=== PATIENT | male | born 1945 | race Caucasian/White ===

== ENCOUNTER → 2016-12-09 08:16 | Day surgery (SDC) | payer MEDICARE, BC ==
[~2016-12-09 08:16] MED LIST: Acetaminophen TAB* 325 MG PO PRN; Buffered Lidocaine 1% SYRIN* 3 ML/SYR SYRINGE INTRADERM ONE; Cyclopentolate 1% OPTH.SOL* 2 ML BTL ONE; Flurbiprofen 0.03% OPTH.SOL* 2.5 ML BTL ONE; Lidocaine 1% MPF* 2 ML VIAL ONE; Lidocaine 2% EPI 1:200000 MPF* 20 ML VIAL ONE; Midazolam* 1 MG/ML 2 ML VIAL (2 MG) ONE; Neomycin/Polymy/Dex OPTH.SUSP* MAXITROL 0.1% 5 ML ONE; Phenylephrine 2.5% OPTH.SOL* 2 ML BTL ONE; Povidone Iodine 5% OPTH* 30 ML BTL ONE; Proparacaine 0.5% OPHTH.SOL* 15 ML BTL ONE; acetaZOLAMIDE TAB* 250 MG ONE; fentaNYL* 50 MCG/ML 2 ML VIAL (100 MCG VIAL) ONE
[2016-12-09 10:57] VITALS: BP 151/71
--- NOTE | 2016-12-09 11:33 | OP ---
DATE OF OPERATION: 12/09/2016. DATE OF : 1945. SURGEON: Rodolfo Knox M.D. PREOPERATIVE DIAGNOSIS: Cataract right eye. POSTOPERATIVE DIAGNOSIS: Cataract right eye. OPERATIVE PROCEDURE: Phacoemulsification right eye with IOL. PROCEDURE: The patient was brought to the operating room after being given 1/2% Alcaine with epinep hrine drops in the preoperative area. The eye was prepped and draped in the usual sterile fashion. Sterile drape and eyelid speculum were placed. Again, topical 1/2% Alcaine with epinephrine was gi cortney. A paracentesis incision was made at the 9 o'clock position with the No.75 blade. Clear cornea incision 2.2 x 2.2-mm was created at the 12 o'clock position starting at the anterior limbus using the 2.2-mm keratome. The anterior chamber was irrigated with 0.4 mL of 1% non-preservative intracam eral lidocaine and filled with DisCoVisc. A capsulorrhexis was completed using the cystotome and th e Utrata forceps. Hydrodissection was performed with balanced salt solution. The lens nucleus was r emoved with the Phacoemulsification handpiece without incident. Cortex was removed with the irrigat ion-aspiration handpiece. The capsular bag was re-inflated using DisCoVisc and an SN60WF 18.5 Impla nt was inserted with the shooter. The irrigation-aspiration handpiece was used to remove all residu al DisCoVisc. The eye was refilled with balanced salt solution and the wound checked and found to b e watertight. Topical Maxitrol drops were given. [id number]/[facility] #: [id number]
== END | disposition home or self-care (01) ==
LOC: OREAST 08:16
PROVIDERS: ATTEND Specialist
DX: H25.811 Combined forms of age-related cataract, right eye (principal); E11.3393 Type 2 diabetes mellitus with moderate nonproliferative diabetic retinopathy without macular edema, bilateral; Z79.4 Long term (current) use of insulin; H35.81 Retinal edema; N18.3 Chronic kidney disease, stage 3 (moderate); E78.2 Mixed hyperlipidemia; I10 Essential (primary) hypertension
CPT/HCPCS: J2250; J3010; V2632

== ENCOUNTER → 2016-12-16 08:00 | Day surgery (SDC) | payer MEDICARE, BC ==
[~2016-12-16 08:00] MED LIST changes: -fentaNYL* 50 MCG/ML 2 ML VIAL (100 MCG VIAL) ONE
[2016-12-16 11:21] VITALS: BP 127/65
--- NOTE | 2016-12-17 07:49 | OP ---
DATE OF OPERATION: 12/16/16 - [facility] DATE OF : [birth year] SURGEON: Rodolfo Knox MD PREOPERATIVE DIAGNOSIS: Cataract, left eye. POSTOPERATIVE DIAGNOSIS: Cataract, left eye. OPERATIVE PROCEDURE: Phacoemulsification, left eye with IOL. DESCRIPTION OF PROCEDURE: The patient was brought to the operating room after being given 1/2% Alcaine with epinephrine drops in the preoperative area. The eye was prepped and draped in the usual sterile fashion. Sterile drape and eyelid speculum were placed. Again, topical 1/2% Alcaine with epinephrine was given. A paracentesis incision was made at the 3 o'clock position with the No.75 blade. Clear cornea incision 2.2 x 2.2-mm was created at the 6 o'clock position starting at the anterior limbus using the 2.2-mm keratome. The anterior chamber was irrigated with 0.4 mL of 1% non-preservative intracameral lidocaine and filled with DisCoVisc. A capsulorrhexis was completed using the cystotome and the Utrata forceps. Hydrodissection was performed with balanced salt solution. The lens nucleus was removed with the Phacoemulsification handpiece without incident. Cortex was removed with the irrigation-aspiration handpiece. The capsular bag was re-inflated using DisCoVisc and an [id number] 18 implant was inserted with the shooter. The irrigation-aspiration handpiece was used to remove all residual DisCoVisc. The eye was refilled with balanced salt solution and the wound checked and found to be watertight. Topical Maxitrol drops were given. [id number]/[facility] #: [id number] [facility]
== END | disposition home or self-care (01) ==
LOC: OREAST 08:00
PROVIDERS: ATTEND Specialist
DX: H25.812 Combined forms of age-related cataract, left eye (principal); E11.3393 Type 2 diabetes mellitus with moderate nonproliferative diabetic retinopathy without macular edema, bilateral; I10 Essential (primary) hypertension; N18.3 Chronic kidney disease, stage 3 (moderate); Z79.4 Long term (current) use of insulin; E78.2 Mixed hyperlipidemia
CPT/HCPCS: J2250; V2632

== ENCOUNTER 2019-05-15 09:18 | Emergency (ER) | payer MEDICARE, BC ==
--- OUTSIDE RECORDS SUMMARY | 2019-05-15 09:37 | XMS REPORT | Continuity of Care Document ---
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 Medicine Problems Description No Information Available Social History Type Date Description Comments Sex Unknown ETOH Use Occasionally consumes alcohol 2 per week Tobacco Use Start: Unknown Patient has never smoked Smoking Status Reviewed: 05/03/19 Patient has never smoked Exercise Type/Frequency Does not exercise Allergies, Adverse Reactions, Alerts Active Allergies Reaction Severity Comments Date Augmentin GI Upset 04/28/2019 Azithromycin GI Upset 05/03/2019 Medications Active Medications SIG Qnty Indications Ordering Provider Date Atorvastatin Calcium 1 by mouth every 90tabs Moni Vann MD 04/28/2019 day 40mg Tablets Amlodipine Besylate 1 by mouth every 30tabs Moni Vann MD 04/28/2019 day 10mg Tablets Metoprolol Succinate 1 by mouth every Unknown ER day 25mg Tablets ER 24HR Lantus 27 units subq Unknown 100Unit/ML daily Solution Novolog Flexpen SSC coverage Unknown 100Unit/ML Solution Pen-Inject Omeprazole 1 by mouth every Unknown 20mg day Capsules DR Quinapril HCL 1 tab by mouth Unknown 10mg daily Tablets Vitamin D3 1 tab daily by Unknown mouth Immunizations Description No Information Available Vital Signs Date Vital Result Comment 05/03/2019 2:49pm Height 68 inches 5'8" Weight 175.00 lb Heart Rate 66 /min BP Systolic Sitting 138 mmHg BP Diastolic Sitting 70 mmHg Respiratory Rate 16 /min Body Temperature 98.8 F BMI (Body Mass Index) 26.6 kg/m2 Results Description No Information Available Procedures Date Code Description Status 03/08/2015 60251741 Mammogram Completed Medical Devices Description No Information Available Encounters Description No Information Available Assessments Description No Information Available Plan of Treatment No Information Available Functional Status Description No Information Available Mental Status Description No Information Available Referrals Description No Information Available
--- NOTE | 2019-05-15 09:55 | ED ---
Abdominal Pain/Male - HPI Summary HPI Summary: 73 year old M presenting to [facility] accompanied by complains of severe, constant diffuse abdominal pain and abdominal distension since 03:00 today. Patient states that he is burping. Patient reports diarrhea x3 this morning. Patient denies nausea, dsyuria, vomiting. The patient rates the pain 7/10 in severity. Symptoms aggravated by nothing. Symptoms alleviated by nothing. Patient states he treated his symptoms with Tums per assessment consultant. Patient states he had a similar episode of symptoms on 04/20/19. Patient states he had a CT Abdomen/Pelvis done on 04/24/19 which showed cholelithiasis. Patient states that at his follow up appointment with [facility], patient was told he did not have cholelithiasis. Patient states that his pain improved one week after his follow up appointment until 03:00 today. Patient notes that his symptoms coincide with long periods of time spent driving. - History of Current Complaint Chief Complaint: EDAbdPain Stated Complaint: ABD PAIN PER PT Time Seen by Provider: 05/15/19 09:28 Hx Obtained From: Patient Onset/Duration: Lasting Weeks - 04/20/19, Worse Since - 05/15/19 at 0300 Timing: Constant Severity Currently: Moderate Pain Intensity: 7 Pain Scale Used: 0-10 Numeric Location: Diffuse Radiates: No Aggravating Factor(s): Nothing Alleviating Factor(s): Nothing Associated Signs And Symptoms: Positive: Negative - dysuria, Diarrhea, Other - patient states he is burping. Negative: Nausea, Vomiting - Allergies/Home Medications Allergies/Adverse Reactions: Allergies Allergy/AdvReac Type Severity Reaction Status Date / Time amoxicillin [From Augmentin] Allergy Diarrhea Verified 05/15/19 09:26 azithromycin Allergy Unknown Verified 05/15/19 09:45 Reaction Details clavulanic acid Allergy Diarrhea Verified 05/15/19 09:26 [From Augmentin] Home Medications: Home Medications Metoprolol Succinate 1 tab PO DAILY 05/15/19 [History Confirmed 05/15/19] Vitamin D TAB* 1 tab PO DAILY 05/15/19 [History Confirmed 05/15/19] PMH/Surg Hx/FS Hx/Imm Hx Endocrine/Hematology History: Reports: Hx Diabetes - ON INSULIN Cardiovascular History: Reports: Hx Hypertension - PT STATES CONTROLLED WITH MEDS GI History: Reports: Hx Gastroesophageal Reflux Disease - PT STATES CONTROLLED WITH MEDS Sensory History: Reports: Hx Cataracts - BILAT, Hx Contacts or Glasses Denies: Hx Hearing Aid Opthamlomology History: Reports: Hx Cataracts - BILAT, Hx Contacts or Glasses - Cancer History Hx Chemotherapy: No Hx Radiation Therapy: No - Surgical History Surgery Procedure, Year, and Place: TONSILLECTOMY Hx Anesthesia Reactions: No - Immunization History Immunizations Up to Date: Yes Infectious Disease History: No Infectious Disease History: Denies: Traveled Outside the [place] in Last 30 Days - Family History Known Family History: Positive: Other - NEG: Breast CA - Social History Alcohol Use: Weekly Alcohol Amount: 2 BEERS WEEKLY Hx Substance Use: No Substance Use Type: Reports: None Hx Tobacco Use: No Smoking Status (MU): Never Smoked Tobacco Review of Systems Positive: Abdominal Pain, Diarrhea, Other - abdominal distension, patient states he is burping. Negative: Vomiting, Nausea Negative: dysuria All Other Systems Reviewed And Are Negative: Yes Physical Exam - Summary Physical Exam Summary: Appearance: The patient is well-nourished in no acute distress and in no acute pain. Skin: The skin is warm and dry and skin color reflects adequate perfusion. HEENT: The head is normocephalic and atraumatic. The pupils are equal and reactive. The conjunctivae are clear and without drainage. Nares are patent and without drainage. Mouth reveals moist mucous membranes and the throat is without erythema and exudate. The external ears are intact. The ear canals are patent and without drainage. The tympanic membranes are intact. Neck: The neck is supple with full range of motion and non-tender. There are no carotid bruits. There is no neck vein distension. Respiratory: Chest is non-tender. Lungs are clear to auscultation and breath sounds are symmetrical and equal. Cardiovascular: Heart is regular rate and rhythm. There is no murmur or rub auscultated. There is no peripheral edema and pulses are symmetrical and equal. Abdomen: The abdomen is diffusely tender and tympanitic. There are normal bowel sounds heard in all four quadrants and there is no organomegaly palpated. Musculoskeletal: There is no back tenderness noted. Extremities are non-tender with full range of motion. There is good capillary refill. There is no peripheral edema or calf tenderness elicited. Neurological: Patient is alert and oriented to person, place and time. The patient has symmetrical motor strength in all four extremities. Cranial nerves are grossly intact. Deep tendon reflexes are symmetrical and equal in all four extremities. Triage Information Reviewed: Yes Vital Signs On Initial Exam: Initial Vitals Temp Pulse Resp BP Pulse Ox 98.9 F 86 16 183/92 97 05/15/19 09:19 05/15/19 09:19 05/15/19 09:19 05/15/19 09:19 05/15/19 09:19 Vital Signs Reviewed: Yes Diagnostics - Vital Signs Vital Signs Temp Pulse Resp BP Pulse Ox 05/15/19 09:41 76 140/115 98 05/15/19 09:37 76 96 05/15/19 09:19 98.9 F 86 16 183/92 97 - Laboratory Result Diagrams: 05/15/19 10:01 05/15/19 10:01 Lab Statement: Any lab studies that have been ordered have been reviewed, and results considered in the medical decision making process. - CT Abd/Pel CT Interpretation Completed By: Radiologist Summary of CT Findings: IMPRESSION: No obstructive uropathy is noted. Cholelithiasis without evidence of biliary duct dilatation. No pericholecystic fluid or wall thickening is identified. At the root of the mesentery there are small lymph nodes with infiltration of FAT at the root of the mesentery which is more prominent than was present on previous exam. The possibility of mesenteric panniculitis should BE considered. Alternatively this may be secondary to mild pancreatitis. ED Physician has reviewed this report. Re-Evaluation - Re-Evaluation 1235 Re-Evaluation Time: 12:35 Change: Unchanged Comment: Patient would like CT scan. Second Eval Re-Evaluation Time: 14:40 Comment: Patient informed of CT report and is agreeable to discharge Abdominal Pain Male Course/Dx - Course Course Of Treatment: Mr. Crawford presented with lower abdominal pain. He had a similar pain a week or so ago and was worked up in the emergency department here. Nothing was found and the pain gradually resolved. He followed up with surgery because of gallstones and they felt that this was not likely the source of his pain. This pain started again last night and has been more severe today than previously. He is nontoxic in appearance with stable vitals. He was given Toradol with good relief here while labs were obtained and were significant for a leukocytosis. He did feel improved but because his pain had been worse and he was not completely improved, and CT was repeated. 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 - Diagnoses Provider Diagnoses: Mesenteric panniculitis Discharge ED - Sign-Out/Discharge Documenting (check all that apply): Patient Departure - discharge Patient Received Moderate/Deep Sedation with Procedure: No - Discharge Plan Condition: Stable Disposition: HOME Patient Education Materials: Abdominal Pain (ED) Referrals: John Logan MD [Primary Care Provider] - 3 Days Additional Instructions: Follow up with primary care physician in 2 to 3 days. Return to Emergency Department for new or worsening symptoms. - Billing Disposition and Condition Condition: STABLE Disposition: Home - Attestation Statements Document Initiated by Minor: Yes Documenting Scribe: Baylee Wen Provider For Whom Minor is Documenting (Include Credential): Corwin Mitchell MD Scribe Attestation: Baylee Holly scribed for Corwin Mitchell MD on 05/15/19 at 1646. Scribe Documentation Reviewed: Yes Provider Attestation: The documentation as recorded by the Baylee lopez accurately reflects the service I personally performed and the decisions made by me, Corwin Mitchell MD Status of Scribnatividad Document: Viewed
[2019-05-15] MEDS ORDERED: Ketorolac INJ* 30 MG/ML 1 ML VIAL IV PUSH ONE (10:17)
[2019-05-15 10:23] LABS: ABS Lymphocytes 0.7 10^3/ul (1.0-4.8); ABS Monocytes 0.5 10^3/ul (0-0.8); ABS Neutrophils 8.3 10^3/ul (1.5-7.7); Eosinophil % 0.4 %; Hematocrit 39 % (42-52); Hemoglobin 13.5 g/dL (14.0-18.0); Lymphocyte % 6.9 %; Mean Corpuscular HGB Conc 35 g/dL (31-36); Mean Corpuscular Hemoglobin 31 pg (27-31); Mean Corpuscular Volume 90 fL (80-94); Mean Platelet Volume 8.8 fL (7.4-10.4); Nucleated Red Blood Cells % 0.1; Platelet Count 195 10^3/uL (150-450); Red Blood Count 4.36 10^6 /uL (4.18-5.48); Red Cell Distribution Width 13 % (10-15); White Blood Count 9.6 10^3/uL (3.5-10.8)
[2019-05-15 10:39] LABS: Albumin 3.9 g/dL (3.2-5.2); Albumin/Globulin Ratio 1.6 (1-3); C Reactive Protein 4.28 mg/L (<8.01); Calcium 8.5 mg/dL (8.6-10.3); EGFR African American 41.4 (>60); EGFR Non-African American 34.2 (>60); Globulin 2.4 g/dL (2-4); Potassium 4.7 mmol/L (3.5-5.0); Total Bilirubin 0.7 mg/dL (0.2-1.0); Total Protein 6.3 g/dL (6.4-8.9)
[2019-05-15] MEDS ORDERED: NS 0.9% 1000 ML** 1,000 ML IV ONE (11:04)
[2019-05-15 15:51] VITALS: BP 147/81
== END 2019-05-15 15:49 | disposition home or self-care (01) ==
LOC: ED 09:18
DX: K65.4 Sclerosing mesenteritis (principal); K80.20 Calculus of gallbladder without cholecystitis without obstruction; E11.9 Type 2 diabetes mellitus without complications; I10 Essential (primary) hypertension; K21.9 Gastro-esophageal reflux disease without esophagitis; Z79.4 Long term (current) use of insulin; Z79.899 Other long term (current) drug therapy; Z88.1 Allergy status to other antibiotic agents
CPT/HCPCS: 36415; 74176; 80053; 83605; 83690; 85025; 86140; 96361; 96374; 99283; J1885

== ENCOUNTER 2022-08-19 14:44 | Inpatient (IN) ==
[2022-08-19 16:10] LABS: ABS Basophils 0.1 10^3/ul (0-0.2); ABS Eosinophils 0.1 10^3/ul (0-0.6); ABS Lymphocytes 0.4 10^3/ul (1.0-4.8); ABS Monocytes 0.8 10^3/ul (0-0.8); ABS Neutrophils 8.5 10^3/ul (1.5-7.7); Eosinophil % 0.8 %; Hematocrit 34 % (42-52); Lymphocyte % 3.8 %; Mean Corpuscular HGB Conc 33 g/dL (31-36); Mean Corpuscular Hemoglobin 29 pg (27-31); Mean Corpuscular Volume 90 fL (80-94); Mean Platelet Volume 9.4 fL (7.4-10.4); Platelet Count 161 10^3/uL (150-450); Red Blood Count 3.74 10^6 /uL (4.18-5.48); Red Cell Distribution Width 15 % (10-15); White Blood Count 9.9 10^3/uL (3.5-10.8)
[2022-08-19 17:07] LABS: Albumin 3.3 g/dL (3.2-5.2); Calcium 8.8 mg/dL (8.6-10.3); Total Bilirubin 1.4 mg/dL (0.2-1.0)
[2022-08-19 17:08] LABS: Potassium 6.1 mmol/L (3.5-5.0)
[2022-08-19 17:12] LABS: Albumin/Globulin Ratio 1.2 (1-3); Globulin 2.7 g/dL (2-4); eGFR CKD-EPI 28.6 (>60)
[2022-08-19] MEDS ORDERED: SODIUM ZIRCONIUM CYCLOSILICATE 10 GM PACKET PO ONE (22:39)
[2022-08-20 02:53] LABS: Calcium 8.5 mg/dL (8.6-10.3); eGFR CKD-EPI 28.9 (>60)
[2022-08-20 03:01] LABS: Potassium 5.3 mmol/L (3.5-5.0)
[2022-08-20] MEDS ORDERED: Dextrose 50% Syringe 50 ml 25 GM/50 ML SYRINGE IV PUSH PRN (04:29)
[2022-08-20 05:19] LABS: ABS Eosinophils 0.1 10^3/ul (0-0.6); ABS Lymphocytes 0.7 10^3/ul (1.0-4.8); ABS Neutrophils 6.8 10^3/ul (1.5-7.7); Eosinophil % 1.7 %; Hematocrit 32 % (42-52); Hemoglobin 10.6 g/dL (14.0-18.0); Lymphocyte % 7.7 %; Mean Corpuscular HGB Conc 33 g/dL (31-36); Mean Corpuscular Hemoglobin 29 pg (27-31); Mean Corpuscular Volume 89 fL (80-94); Platelet Count 156 10^3/uL (150-450); Red Blood Count 3.61 10^6 /uL (4.18-5.48); Red Cell Distribution Width 15 % (10-15); White Blood Count 8.7 10^3/uL (3.5-10.8)
[2022-08-20 05:59] LABS: Calcium 9.1 mg/dL (8.6-10.3); Magnesium 1.7 mg/dL (1.9-2.7); Potassium 4.7 mmol/L (3.5-5.0); eGFR CKD-EPI 29.2 (>60)
[2022-08-20] MEDS ORDERED: Enoxaparin 30 MG/0.3 ML SYR SUBCUT SCH ×2 (06:00→18:00)
[2022-08-20 06:57] LABS: Osmolality Serum 307 mOsm/kg (275-295)
[2022-08-20 08:55] LABS: Urine Osmo 470 mOsm/kg (150-1150)
[2022-08-20] MEDS: Insulin GLARGINE 100 un/ml 10 ml VIAL SUBCUT SCH (09:23)
[2022-08-20] MEDS: Albumin Human 25% 12.5 GM/50 ML BTL IV SCH ×2 (21:40→22:45)
[2022-08-20] MEDS: Enoxaparin 30 MG/0.3 ML SYR SUBCUT SCH (21:48)
[2022-08-21] MEDS: Albumin Human 25% 12.5 GM/50 ML BTL IV SCH ×2 (00:23→02:04)
[2022-08-21 06:52] LABS: ABS Eosinophils 0.1 10^3/ul (0-0.6); ABS Lymphocytes 0.5 10^3/ul (1.0-4.8); ABS Monocytes 0.6 10^3/ul (0-0.8); ABS Neutrophils 4.4 10^3/ul (1.5-7.7); Eosinophil % 1.5 %; Hematocrit 26 % (42-52); Hemoglobin 8.8 g/dL (14.0-18.0); Lymphocyte % 9.3 %; Mean Corpuscular HGB Conc 34 g/dL (31-36); Mean Corpuscular Hemoglobin 30 pg (27-31); Mean Corpuscular Volume 87 fL (80-94); Mean Platelet Volume 8.7 fL (7.4-10.4); Platelet Count 111 10^3/uL (150-450); Red Blood Count 2.95 10^6 /uL (4.18-5.48); Red Cell Distribution Width 15 % (10-15); White Blood Count 5.6 10^3/uL (3.5-10.8)
[2022-08-21 07:04] LABS: Calcium 8.5 mg/dL (8.6-10.3); Potassium 4.7 mmol/L (3.5-5.0); eGFR CKD-EPI 33.2 (>60)
[2022-08-21] MEDS: Insulin GLARGINE 100 un/ml 10 ml VIAL SUBCUT SCH (08:54)
[2022-08-21 13:13] LABS: Hematocrit 29 % (42-52); Hemoglobin 9.6 g/dL (14.0-18.0)
[2022-08-21 14:44] LABS: Mean Corpuscular HGB Conc 33 g/dL (31-36); Mean Corpuscular Hemoglobin 29 pg (27-31); Mean Corpuscular Volume 89 fL (80-94); Mean Platelet Volume 9.3 fL (7.4-10.4); Platelet Count 130 10^3/uL (150-450); Red Blood Count 3.28 10^6 /uL (4.18-5.48); Red Cell Distribution Width 15 % (10-15); White Blood Count 7.3 10^3/uL (3.5-10.8)
[2022-08-21 14:51] LABS: Albumin 3.4 g/dL (3.2-5.2); Albumin/Globulin Ratio 1.8 (1-3); Direct Bilirubin 0.4 mg/dL (0.03-0.18); Globulin 1.9 g/dL (2-4); Total Bilirubin 1.4 mg/dL (0.2-1.0); Total Protein 5.3 g/dL (6.4-8.9)
[2022-08-21] MEDS ORDERED: Midazolam 5 mg/5 ml VIAL 1 mg/ml 5 ml VIAL (5 mg) ONE (16:08)
[2022-08-21] MEDS ORDERED: fentaNYL 100 mcg/2 ml 50 MCG/ML VIAL ONE (16:08)
[2022-08-21 20:13] LABS: Hematocrit 28 % (42-52); Hemoglobin 9.8 g/dL (14.0-18.0)
[2022-08-21] MEDS: Enoxaparin 30 MG/0.3 ML SYR SUBCUT SCH (21:37)
[2022-08-22] MEDS: Insulin GLARGINE 100 un/ml 10 ml VIAL SUBCUT SCH (08:32)
[2022-08-22 09:17] LABS: ABS Basophils 0.1 10^3/ul (0-0.2); ABS Eosinophils 0.1 10^3/ul (0-0.6); ABS Lymphocytes 0.6 10^3/ul (1.0-4.8); ABS Monocytes 0.6 10^3/ul (0-0.8); ABS Neutrophils 5.1 10^3/ul (1.5-7.7); Hematocrit 29 % (42-52); Hemoglobin 9.9 g/dL (14.0-18.0); Lymphocyte % 8.8 %; Mean Corpuscular HGB Conc 34 g/dL (31-36); Mean Corpuscular Hemoglobin 30 pg (27-31); Mean Corpuscular Volume 88 fL (80-94); Mean Platelet Volume 8.8 fL (7.4-10.4); Platelet Count 138 10^3/uL (150-450); Red Blood Count 3.27 10^6 /uL (4.18-5.48); Red Cell Distribution Width 15 % (10-15); White Blood Count 6.5 10^3/uL (3.5-10.8)
[2022-08-22 09:46] LABS: Albumin 3.1 g/dL (3.2-5.2); Albumin/Globulin Ratio 1.6 (1-3); Calcium 8.6 mg/dL (8.6-10.3); Globulin 1.9 g/dL (2-4); Potassium 4.5 mmol/L (3.5-5.0); Total Bilirubin 1.1 mg/dL (0.2-1.0)
[2022-08-22 10:33] VITALS: BP 113/65
[2022-08-22] MEDS: Al Hydrox/Mg Hydrox/Simet LIQ 30 ML UDC PO ONE ×2 (11:18→11:53)
== END 2022-08-22 14:00 | disposition home or self-care (01) | DRG 441 ==
LOC: ED 14:44 → EDHOLD 14:44 → SUATTDRO 08-20 03:20 → EDHOLD 08-20 10:11 → MED 08-20 11:18
PROVIDERS: ADMIT Internal Medicine; ATTEND Student in an Organized Health Care Education/Training Program

== ENCOUNTER 2023-11-03 10:49 | Inpatient (IN) ==
[2023-11-03 13:23] LABS: ALT 28 U/L (7-52); Albumin/Globulin Ratio 1.1 (1-3); Alkaline Phosphatase 197 U/L (35-149); Anion Gap 9 mmol/L (2-16); Blood Urea Nitrogen 61 mg/dL (6-24); CO2 Carbon Dioxide 28 mmol/L (22-32); Calcium 9.4 mg/dL (8.6-10.3); Chloride 100 mmol/L (101-111); Globulin 3.6 g/dL (2-4); Glucose 280 mg/dL (70-100); Lipase 93 U/L (11.0-82.0); Sodium 137 mmol/L (135-145); Total Bilirubin 2.4 mg/dL (0.2-1.0); Total Protein 7.6 g/dL (6.4-8.9); eGFR CKD-EPI 27.3 (>60)
[2023-11-03 13:50] LABS: Hematocrit 37.1 % (38-53); Hemoglobin 12.5 g/dL (13.2-16.3); Mean Corpuscular Hemoglobin 31.8 pg (27-33); Mean Corpuscular Hgb Conc 33.6 g/dL (31-36); Mean Corpuscular Volume 94.6 fL (80-97); Red Blood Count 3.92 10^6/uL (4.06-5.63); Red Cell Distribution Width 13.2 % (12-17); White Blood Count 12.8 10^3/uL (3.6-10.2)
[2023-11-03] MEDS: Morphine 4 MG/ML VIAL (1 ml) IV ONE ×2 (13:51→17:07)
[2023-11-03 14:12] LABS: Potassium Redraw 3.7 mmol/L (3.5-5.0)
[2023-11-03 14:16] LABS: C Reactive Protein 7.71 mg/L (<8.01)
[2023-11-03 14:20] LABS: ABS Lymphocytes 0.4 10^3/uL (1.0-4.8); ABS Monocytes 0.9 10^3/uL (0.0-1.1); ABS Neutrophils 11.5 10^3/uL (1.5-7.6); ABS Nucleated RBC 0.01 10^3/ul; Lymphocyte % 3.1 %; Mean Platelet Volume 9.7 fL (7.5-11.2); Nucleated Red Blood Cells % 0.1 %/100WBC (0.0-0.8); Platelet Count 98 10^3/uL (150-450)
[2023-11-03 14:49] LABS: Direct Bilirubin Redraw 0.6 mg/dL (0.1-0.5)
[2023-11-03 18:26] LABS: Body Fluid Total Nucleated 206 /mcL
[2023-11-03 18:56] LABS: Body Fluid Meta 1 %; Body Fluid Mono 60 %; Body Fluid Total Cells Counted 200
[2023-11-03] MEDS: Piperacillin/Tazobac 3.375 BAG 3.375 GM/100 ML BAG IV ONE (18:57)
[2023-11-03] MEDS ORDERED: Dextrose 50% Syringe 50 ml 25 GM/50 ML SYRINGE IV PUSH PRN (19:01)
[2023-11-03 19:04] LABS: Body Fluid Source Peritonial Fluid
[2023-11-03 19:05] LABS: Body Fluid Appearance Clear; Body Fluid Color Yellow
[2023-11-03 19:17] LABS: INR 1.06 (0.83-1.13)
[2023-11-03 20:50] LABS: Hematocrit 39.4 % (38-53); Hemoglobin 13.2 g/dL (13.2-16.3); Mean Corpuscular Hemoglobin 31.6 pg (27-33); Mean Corpuscular Hgb Conc 33.4 g/dL (31-36); Mean Corpuscular Volume 94.7 fL (80-97); Mean Platelet Volume 9.6 fL (7.5-11.2); Platelet Count 111 10^3/uL (150-450); Red Blood Count 4.16 10^6/uL (4.06-5.63); Red Cell Distribution Width 13.6 % (12-17)
[2023-11-03 21:17] LABS: Creatinine, Serum 2.44 mg/dL (0.67-1.17); eGFR CKD-EPI 26.7 (>60)
[2023-11-03 21:27] LABS: ABS Basophils 0.1 10^3/uL (0.0-0.1); ABS Lymphocytes 0.6 10^3/uL (1.0-4.8); ABS Monocytes 1.6 10^3/uL (0.0-1.1); ABS Neutrophils 15.7 10^3/uL (1.5-7.6); ABS Nucleated RBC 0.01 10^3/ul; Lymphocyte % 3.3 %; Nucleated Red Blood Cells % 0.1 %/100WBC (0.0-0.8)
[2023-11-03] MEDS: Heparin 5000 UNITS/ML 1 mL VIAL SUBCUT SCH (23:19)
[2023-11-03] MEDS: Insulin GLARGINE 100 un/ml 10 ml VIAL SUBCUT SCH (23:21)
[2023-11-03] MEDS: metroNIDAZOLE IV 500 MG/100ML 500 MG/100 ML BAG IVPB SCH (23:22)
[2023-11-04] MEDS: cefTRIAXone 1 gm/50 mL D5W 1 GM/50 ML BAG IV SCH (01:01)
[2023-11-04 05:28] LABS: ABS Lymphocytes 0.6 10^3/uL (1.0-4.8); ABS Monocytes 1.5 10^3/uL (0.0-1.1); ABS Neutrophils 13.2 10^3/uL (1.5-7.6); Eosinophil % 0.1 %; Hematocrit 38.3 % (38-53); Hemoglobin 12.9 g/dL (13.2-16.3); Lymphocyte % 3.9 %; Mean Corpuscular Hgb Conc 33.7 g/dL (31-36); Mean Platelet Volume 9.9 fL (7.5-11.2); Platelet Count 90 10^3/uL (150-450); Red Blood Count 4.03 10^6/uL (4.06-5.63); Red Cell Distribution Width 13.4 % (12-17); White Blood Count 15.3 10^3/uL (3.6-10.2)
[2023-11-04 05:54] LABS: Albumin 3.3 g/dL (3.2-5.2); Albumin/Globulin Ratio 1.2 (1-3); Calcium 8.5 mg/dL (8.6-10.3); Creatinine, Serum 2.54 mg/dL (0.67-1.17); Globulin 2.7 g/dL (2-4); Potassium 3.6 mmol/L (3.5-5.0); Total Bilirubin 4.8 mg/dL (0.2-1.0); eGFR CKD-EPI 25.5 (>60)
[2023-11-04] MEDS: Morphine 2 MG/ML SYRINGE IV PRN (06:32)
[2023-11-04 08:16] LABS: Direct Bilirubin 2.4 mg/dL (0.03-0.18); Indirect Bilirubin 2.4 mg/dL (0.3-1.0)
[2023-11-04] MEDS ORDERED: COVID VAC 23-24(12+)(Moderna) SYR 0.5 ML IM ONE (09:00)
[2023-11-04] MEDS: Lactated Ringers 1000 ml BAG 1,000 ML IV ONE (09:16)
[2023-11-04] MEDS: HYDROmorphone 1 MG/1 ML SYRINGE IV PRN (11:21)
[2023-11-05 06:14] LABS: INR 1.35 (0.83-1.13)
[2023-11-05] MEDS: HYDROmorphone 0.5 MG/0.5 ML SYRINGE IV PRN (06:14)
[2023-11-05 06:26] LABS: Hematocrit 36.8 % (38-53); Hemoglobin 12.5 g/dL (13.2-16.3); Mean Corpuscular Hemoglobin 32.3 pg (27-33); Mean Corpuscular Hgb Conc 34.1 g/dL (31-36); Mean Corpuscular Volume 94.8 fL (80-97); Mean Platelet Volume 10.2 fL (7.5-11.2); Platelet Count 89 10^3/uL (150-450); Red Blood Count 3.88 10^6/uL (4.06-5.63); Red Cell Distribution Width 13.9 % (12-17); White Blood Count 20.7 10^3/uL (3.6-10.2)
[2023-11-05 06:39] LABS: ALT 137 U/L (7-52); AST 134 U/L (13-39); Albumin 2.9 g/dL (3.2-5.2); Albumin/Globulin Ratio 1.2 (1-3); Alkaline Phosphatase 416 U/L (35-149); Anion Gap 15 mmol/L (2-16); Blood Urea Nitrogen 71 mg/dL (6-24); CO2 Carbon Dioxide 27 mmol/L (22-32); Calcium 8.5 mg/dL (8.6-10.3); Chloride 97 mmol/L (101-111); Creatinine, Serum 3.28 mg/dL (0.67-1.17); Globulin 2.5 g/dL (2-4); Glucose 196 mg/dL (70-100); Potassium 3.9 mmol/L (3.5-5.0); Sodium 139 mmol/L (135-145); Total Bilirubin 6.9 mg/dL (0.2-1.0); Total Protein 5.4 g/dL (6.4-8.9); eGFR CKD-EPI 18.8 (>60)
[2023-11-05 07:20] LABS: ABS Lymphocytes 0.7 10^3/uL (1.0-4.8); ABS Monocytes 2.2 10^3/uL (0.0-1.1); ABS Neutrophils 17.7 10^3/uL (1.5-7.6); Eosinophil % 0.1 %; Lymphocyte % 3.6 %
[2023-11-05] MEDS ORDERED: Zosyn per Pharmacy NOTE FOLLOW UP SCH (08:00)
[2023-11-05 08:38] LABS: Lipase 25 U/L (11.0-82.0)
[2023-11-05] MEDS: Lactated Ringers 1000 ml BAG 1,000 ML IV ONE (09:28)
[2023-11-05 09:29] LABS: CRP High Sensitivity > 80.00 mg/L (<2.00)
[2023-11-05] MEDS: Lactated Ringers 1000 ml BAG 500 ML IV ONE (09:58)
[2023-11-05] MEDS: ZOSYN 3.375 GM x ONE DOSE over 30 miuntes IV (10:15)
[2023-11-05 11:01] LABS: Glucose, BF 292 mg/dL
[2023-11-05 11:05] LABS: Albumin, BF 0.9 g/dL; Fluid Type, Albumin PERITONEAL; Fluid Type, Protein, Total PERITONEAL; Total Protein, BF 1.4 g/dL
[2023-11-05 12:05] LABS: Lactate Dehydrogenase, BF 81 U/L
[2023-11-05] MEDS: fentaNYL 100 mcg/2 ml 50 MCG/ML VIAL ONE (13:15)
[2023-11-05] MEDS: ZOSYN 3.375 GM Q12H per EXTENDED INFUSION IV SCH (15:10)
[2023-11-05] MEDS: ZOSYN 3.375 GM Q8H per EXTENDED INFUSION IV SCH (15:14)
[2023-11-06 02:28] LABS: Urine Appearance Turbid; Urine Bilirubin 1+ (Negative); Urine Blood Negative (Negative); Urine Color Dark-Yellow; Urine Glucose Negative (Negative); Urine Ketones Negative (Negative); Urine Nitrite Negative (Negative); Urine Protein 1+ (>=30 mg/dL) (Negative); Urine Specific Gravity 1.018 (1.002-1.030); Urine Urobilinogen Negative (Negative)
[2023-11-06 02:38] LABS: Urine Bacteria Absent /HPF (Absent); Urine Red Blood Cell Absent /HPF (0-Trace); Urine Squamous Epithelial Cell Present /HPF (Absent); Urine White Blood Cell Trace(0-5/hpf) /HPF (0-Trace)
[2023-11-06 06:28] LABS: ABS Lymphocytes 0.5 10^3/uL (1.0-4.8); ABS Monocytes 1.2 10^3/uL (0.0-1.1); ABS Nucleated RBC 0.01 10^3/ul; Eosinophil % 0.3 %; Hematocrit 34.7 % (38-53); Lymphocyte % 3.8 %; Mean Corpuscular Hemoglobin 32.4 pg (27-33); Mean Corpuscular Hgb Conc 34.5 g/dL (31-36); Mean Corpuscular Volume 93.8 fL (80-97); Mean Platelet Volume 9.5 fL (7.5-11.2); Platelet Count 83 10^3/uL (150-450); Red Cell Distribution Width 13.8 % (12-17); White Blood Count 12.7 10^3/uL (3.6-10.2)
[2023-11-06 06:50] LABS: Albumin 2.4 g/dL (3.2-5.2); Calcium 7.8 mg/dL (8.6-10.3); Creatinine, Serum 3.68 mg/dL (0.67-1.17); Globulin 2.4 g/dL (2-4); Potassium 3.7 mmol/L (3.5-5.0); Total Bilirubin 5.9 mg/dL (0.2-1.0); Total Protein 4.8 g/dL (6.4-8.9); eGFR CKD-EPI 16.3 (>60)
[2023-11-06] MEDS: Potassium Chlor 20 meq TAB.ER PO ONE (14:30)
[2023-11-06] MEDS: Insulin GLARGINE 100 un/ml 10 ml VIAL SUBCUT SCH (21:59)
[2023-11-07 06:06] LABS: ABS Eosinophils 0.1 10^3/uL (0.0-0.5); ABS Lymphocytes 0.6 10^3/uL (1.0-4.8); ABS Neutrophils 7.5 10^3/uL (1.5-7.6); ABS Nucleated RBC 0.01 10^3/ul; Eosinophil % 1.5 %; Hematocrit 35.5 % (38-53); Hemoglobin 12.3 g/dL (13.2-16.3); Mean Corpuscular Hemoglobin 32.4 pg (27-33); Mean Corpuscular Hgb Conc 34.5 g/dL (31-36); Mean Corpuscular Volume 93.8 fL (80-97); Mean Platelet Volume 9.5 fL (7.5-11.2); Nucleated Red Blood Cells % 0.1 %/100WBC (0.0-0.8); Platelet Count 123 10^3/uL (150-450); Red Blood Count 3.78 10^6/uL (4.06-5.63); White Blood Count 9.3 10^3/uL (3.6-10.2)
[2023-11-07 06:25] LABS: Albumin 2.5 g/dL (3.2-5.2); Albumin/Globulin Ratio 1.1 (1-3); Calcium 7.9 mg/dL (8.6-10.3); Creatinine, Serum 4.34 mg/dL (0.67-1.17); Globulin 2.3 g/dL (2-4); Potassium 3.6 mmol/L (3.5-5.0); Total Bilirubin 4.7 mg/dL (0.2-1.0); Total Protein 4.8 g/dL (6.4-8.9); eGFR CKD-EPI 13.4 (>60)
[2023-11-07] MEDS: Potassium Chloride LIQUID 20 MEQ/15 ML LIQUID PO ONE (07:40)
[2023-11-07] MEDS: Heparin 5000 UNITS/ML 1 mL VIAL SUBCUT SCH (14:02)
[2023-11-08 06:19] LABS: ABS Eosinophils 0.1 10^3/uL (0.0-0.5); ABS Lymphocytes 0.5 10^3/uL (1.0-4.8); ABS Monocytes 0.7 10^3/uL (0.0-1.1); ABS Neutrophils 5.4 10^3/uL (1.5-7.6); ABS Nucleated RBC 0.01 10^3/ul; Eosinophil % 1.4 %; Hematocrit 34.2 % (38-53); Hemoglobin 11.9 g/dL (13.2-16.3); Lymphocyte % 7.2 %; Mean Corpuscular Hemoglobin 32.4 pg (27-33); Mean Corpuscular Hgb Conc 34.7 g/dL (31-36); Mean Corpuscular Volume 93.2 fL (80-97); Mean Platelet Volume 8.9 fL (7.5-11.2); Nucleated Red Blood Cells % 0.1 %/100WBC (0.0-0.8); Platelet Count 116 10^3/uL (150-450); Red Blood Count 3.67 10^6/uL (4.06-5.63); Red Cell Distribution Width 14.1 % (12-17); White Blood Count 6.7 10^3/uL (3.6-10.2)
[2023-11-08 06:26] LABS: INR 1.3 (0.83-1.13)
[2023-11-08 07:01] LABS: Albumin 2.5 g/dL (3.2-5.2); Albumin/Globulin Ratio 1.1 (1-3); Creatinine, Serum 4.66 mg/dL (0.67-1.17); Globulin 2.3 g/dL (2-4); Potassium 3.8 mmol/L (3.5-5.0); Total Bilirubin 3.4 mg/dL (0.2-1.0); Total Protein 4.8 g/dL (6.4-8.9); eGFR CKD-EPI 12.3 (>60)
[2023-11-09 06:13] LABS: Hematocrit 33.8 % (38-53); Mean Corpuscular Hemoglobin 32.8 pg (27-33); Mean Corpuscular Hgb Conc 35.5 g/dL (31-36); Mean Corpuscular Volume 92.3 fL (80-97); Mean Platelet Volume 8.8 fL (7.5-11.2); Platelet Count 103 10^3/uL (150-450); Red Blood Count 3.66 10^6/uL (4.06-5.63); White Blood Count 6.3 10^3/uL (3.6-10.2)
[2023-11-09 06:16] LABS: INR 1.2 (0.83-1.13)
[2023-11-09 06:42] LABS: ABS Eosinophils 0.1 10^3/uL (0.0-0.5); ABS Lymphocytes 0.4 10^3/uL (1.0-4.8); ABS Monocytes 0.8 10^3/uL (0.0-1.1); ABS Neutrophils 4.9 10^3/uL (1.5-7.6); Albumin 2.5 g/dL (3.2-5.2); Calcium 7.9 mg/dL (8.6-10.3); Creatinine, Serum 5.21 mg/dL (0.67-1.17); Eosinophil % 2.2 %; Globulin 2.4 g/dL (2-4); Lymphocyte % 6.8 %; Phosphorus 4.5 mg/dL (2.5-5.0); Potassium 3.7 mmol/L (3.5-5.0); Total Bilirubin 2.8 mg/dL (0.2-1.0); Total Protein 4.9 g/dL (6.4-8.9); eGFR CKD-EPI 10.8 (>60)
[2023-11-09] MEDS ORDERED: NS 0.9% 1000 ml BAG 200 ML IV PRN (12:34)
[2023-11-09] MEDS ORDERED: NS 0.9% 1000 ml BAG 100 ML IV PRN (12:34)
[2023-11-09] MEDS: Heparin 1,000 UNIT/ML 10 ml (10,000 UNITS) CATHLAB/DIALYSIS DIALYSIS PRN (14:48)
[2023-11-09] MEDS: Albumin Human 25% 25 GM/100 ML BTL IV PRN (15:32)
[2023-11-09] MEDS ORDERED: Amoxicillin/Clavul 500/125 TAB (Augmentin 500 mg tab) PO SCH (21:00)
[2023-11-09 22:41] LABS: Hepatitis B Surface Antigen Nonreactive (Nonreactive)
[2023-11-09 22:58] LABS: Hepatitis B Surface Ab Not Immune (Immune)
[2023-11-10 06:59] LABS: Albumin 2.8 g/dL (3.2-5.2); Albumin/Globulin Ratio 1.3 (1-3); Calcium 7.8 mg/dL (8.6-10.3); Creatinine, Serum 4.92 mg/dL (0.67-1.17); Globulin 2.2 g/dL (2-4); Magnesium 1.8 mg/dL (1.9-2.7); Potassium 4.1 mmol/L (3.5-5.0); Total Bilirubin 2.4 mg/dL (0.2-1.0); eGFR CKD-EPI 11.5 (>60)
[2023-11-10 07:53] LABS: ABS Eosinophils 0.2 10^3/uL (0.0-0.5); ABS Lymphocytes 0.5 10^3/uL (1.0-4.8); ABS Monocytes 0.8 10^3/uL (0.0-1.1); ABS Neutrophils 5.4 10^3/uL (1.5-7.6); Eosinophil % 2.8 %; Hematocrit 30.8 % (38-53); Hemoglobin 10.8 g/dL (13.2-16.3); Lymphocyte % 6.9 %; Mean Corpuscular Hemoglobin 32.9 pg (27-33); Mean Corpuscular Volume 94.1 fL (80-97); Mean Platelet Volume 9.1 fL (7.5-11.2); Platelet Count 93 10^3/uL (150-450); RBC Morphology Normal (Normal); Red Blood Count 3.27 10^6/uL (4.06-5.63); White Blood Count 6.9 10^3/uL (3.6-10.2)
[2023-11-10] MEDS: Magnesium Sulfate IV 1GM/100ML 1 GM/100 ML BAG IV ONE (13:17)
[2023-11-11 05:57] LABS: INR 1.15 (0.83-1.13)
[2023-11-11 06:16] LABS: Albumin 3.4 g/dL (3.2-5.2); Albumin/Globulin Ratio 1.6 (1-3); Calcium 8.3 mg/dL (8.6-10.3); Creatinine, Serum 4.33 mg/dL (0.67-1.17); Globulin 2.1 g/dL (2-4); Magnesium 1.9 mg/dL (1.9-2.7); Phosphorus 3.5 mg/dL (2.5-5.0); Total Bilirubin 2.4 mg/dL (0.2-1.0); Total Protein 5.5 g/dL (6.4-8.9); eGFR CKD-EPI 13.4 (>60)
[2023-11-11 07:18] LABS: Hematocrit 29.3 % (38-53); Hemoglobin 10.2 g/dL (13.2-16.3); Mean Corpuscular Hemoglobin 33.1 pg (27-33); Mean Corpuscular Hgb Conc 34.9 g/dL (31-36); Mean Corpuscular Volume 94.8 fL (80-97); Mean Platelet Volume 9.1 fL (7.5-11.2); Platelet Count 91 10^3/uL (150-450); Red Blood Count 3.09 10^6/uL (4.06-5.63); Red Cell Distribution Width 14.2 % (12-17); White Blood Count 7.4 10^3/uL (3.6-10.2)
[2023-11-11 09:05] LABS: ABS Eosinophils 0.2 10^3/uL (0.0-0.5); ABS Lymphocytes 0.3 10^3/uL (1.0-4.8); ABS Monocytes 0.9 10^3/uL (0.0-1.1); ABS Neutrophils 5.9 10^3/uL (1.5-7.6); Eosinophil % 3.1 %; Lymphocyte % 4.7 %; Nucleated Red Blood Cells % 0.1 %/100WBC (0.0-0.8)
[2023-11-12 06:09] LABS: Hematocrit 29.2 % (38-53); Mean Corpuscular Hemoglobin 32.8 pg (27-33); Mean Corpuscular Hgb Conc 34.4 g/dL (31-36); Mean Corpuscular Volume 95.5 fL (80-97); Mean Platelet Volume 8.7 fL (7.5-11.2); Platelet Count 102 10^3/uL (150-450); Red Blood Count 3.05 10^6/uL (4.06-5.63); Red Cell Distribution Width 14.1 % (12-17)
[2023-11-12 06:33] LABS: INR 1.23 (0.83-1.13)
[2023-11-12 07:06] LABS: Albumin 3.2 g/dL (3.2-5.2); Albumin/Globulin Ratio 1.5 (1-3); Calcium 8.2 mg/dL (8.6-10.3); Creatinine, Serum 3.85 mg/dL (0.67-1.17); Globulin 2.1 g/dL (2-4); Magnesium 1.7 mg/dL (1.9-2.7); Phosphorus 3.3 mg/dL (2.5-5.0); Potassium 4.1 mmol/L (3.5-5.0); Total Bilirubin 2.2 mg/dL (0.2-1.0); Total Protein 5.3 g/dL (6.4-8.9); eGFR CKD-EPI 15.5 (>60)
[2023-11-12 07:11] LABS: ABS Basophils 0.1 10^3/uL (0.0-0.1); ABS Eosinophils 0.3 10^3/uL (0.0-0.5); ABS Lymphocytes 0.6 10^3/uL (1.0-4.8); ABS Monocytes 1.1 10^3/uL (0.0-1.1); Eosinophil % 3.2 %; Lymphocyte % 5.8 %
[2023-11-12] MEDS ORDERED: Dextrose 50% Syringe 50 ml 25 GM/50 ML SYRINGE IV PUSH PRN (07:34)
[2023-11-12] MEDS: Magnesium Sulfate 2 gm BAG 2 GM/50 ML BAG IVPB ONE (09:05)
[2023-11-13 04:42] LABS: ABS Basophils 0.1 10^3/uL (0.0-0.1); ABS Eosinophils 0.3 10^3/uL (0.0-0.5); ABS Lymphocytes 0.6 10^3/uL (1.0-4.8); ABS Monocytes 0.8 10^3/uL (0.0-1.1); ABS Neutrophils 8.3 10^3/uL (1.5-7.6); ABS Nucleated RBC 0.01 10^3/ul; Hematocrit 31.1 % (38-53); Hemoglobin 10.6 g/dL (13.2-16.3); Lymphocyte % 6.3 %; Mean Corpuscular Hemoglobin 33.2 pg (27-33); Mean Corpuscular Hgb Conc 33.9 g/dL (31-36); Mean Corpuscular Volume 97.9 fL (80-97); Mean Platelet Volume 9.2 fL (7.5-11.2); Nucleated Red Blood Cells % 0.1 %/100WBC (0.0-0.8); Platelet Count 105 10^3/uL (150-450); Red Blood Count 3.18 10^6/uL (4.06-5.63); Red Cell Distribution Width 14.5 % (12-17); White Blood Count 10.2 10^3/uL (3.6-10.2)
[2023-11-13 05:10] LABS: INR 1.28 (0.83-1.13)
[2023-11-13 05:57] LABS: Albumin 3.1 g/dL (3.2-5.2); Albumin/Globulin Ratio 1.3 (1-3); Creatinine, Serum 4.41 mg/dL (0.67-1.17); Globulin 2.3 g/dL (2-4); Phosphorus 3.8 mg/dL (2.5-5.0); Potassium 4.4 mmol/L (3.5-5.0); Total Bilirubin 1.8 mg/dL (0.2-1.0); Total Protein 5.4 g/dL (6.4-8.9); eGFR CKD-EPI 13.1 (>60)
[2023-11-13] MEDS ORDERED: Dextrose 50% Syringe 50 ml 25 GM/50 ML SYRINGE IV PUSH PRN (08:01)
[2023-11-13] MEDS: Magnesium Sulfate 2 gm BAG 2 GM/50 ML BAG IVPB ONE (09:18)
[2023-11-13] MEDS: ALBUMIN HUMAN 25% IV ONE (09:42)
[2023-11-13] MEDS: Albumin Human 25% 25 GM/100 ML BTL IV ONE (10:44)
[2023-11-13] MEDS: PTO:Evolocumab (NF) 140 MG/ML SYRINGE SUBCUT SCH (11:53)
[2023-11-13] MEDS: Albumin Human 25% 12.5 GM/50 ML BTL IV ONE (12:37)
[2023-11-13 13:50] LABS: C Reactive Protein 17.02 mg/L (<8.01)
[2023-11-13] MEDS: Insulin GLARGINE 100 un/ml 10 ml VIAL SUBCUT SCH (21:10)
[2023-11-14 06:24] LABS: ABS Eosinophils 0.3 10^3/uL (0.0-0.5); ABS Lymphocytes 0.9 10^3/uL (1.0-4.8); ABS Monocytes 0.6 10^3/uL (0.0-1.1); ABS Neutrophils 8.7 10^3/uL (1.5-7.6); ABS Nucleated RBC 0.01 10^3/ul; Eosinophil % 3.1 %; Hematocrit 29.2 % (38-53); Hemoglobin 10.2 g/dL (13.2-16.3); Lymphocyte % 8.8 %; Mean Corpuscular Hemoglobin 32.9 pg (27-33); Mean Corpuscular Hgb Conc 34.8 g/dL (31-36); Mean Corpuscular Volume 94.7 fL (80-97); Mean Platelet Volume 8.7 fL (7.5-11.2); Nucleated Red Blood Cells % 0.1 %/100WBC (0.0-0.8); Platelet Count 103 10^3/uL (150-450); Red Blood Count 3.09 10^6/uL (4.06-5.63); Red Cell Distribution Width 14.3 % (12-17); White Blood Count 10.6 10^3/uL (3.6-10.2)
[2023-11-14 06:36] LABS: INR 1.27 (0.83-1.13)
[2023-11-14 06:57] LABS: Albumin 3.5 g/dL (3.2-5.2); Albumin/Globulin Ratio 1.8 (1-3); Calcium 8.8 mg/dL (8.6-10.3); Creatinine, Serum 4.89 mg/dL (0.67-1.17); Magnesium 2.8 mg/dL (1.9-2.7); Phosphorus 4.9 mg/dL (2.5-5.0); Potassium 4.2 mmol/L (3.5-5.0); Total Bilirubin 2.2 mg/dL (0.2-1.0); Total Protein 5.5 g/dL (6.4-8.9); eGFR CKD-EPI 11.6 (>60)
[2023-11-14] MEDS ORDERED: Dextrose 50% Syringe 50 ml 25 GM/50 ML SYRINGE IV PUSH PRN (12:11)
[2023-11-15 05:59] LABS: ABS Basophils 0.1 10^3/uL (0.0-0.1); ABS Eosinophils 0.2 10^3/uL (0.0-0.5); ABS Lymphocytes 0.8 10^3/uL (1.0-4.8); ABS Monocytes 0.7 10^3/uL (0.0-1.1); ABS Neutrophils 9.7 10^3/uL (1.5-7.6); Eosinophil % 2.1 %; Hematocrit 29.4 % (38-53); Lymphocyte % 7.3 %; Mean Corpuscular Hemoglobin 32.4 pg (27-33); Mean Corpuscular Volume 95.4 fL (80-97); Mean Platelet Volume 8.8 fL (7.5-11.2); Platelet Count 108 10^3/uL (150-450); Red Blood Count 3.08 10^6/uL (4.06-5.63); Red Cell Distribution Width 14.1 % (12-17); White Blood Count 11.6 10^3/uL (3.6-10.2)
[2023-11-15 06:00] LABS: INR 1.2 (0.83-1.13)
[2023-11-15 06:38] LABS: Albumin 3.3 g/dL (3.2-5.2); Albumin/Globulin Ratio 1.4 (1-3); Calcium 8.5 mg/dL (8.6-10.3); Creatinine, Serum 5.22 mg/dL (0.67-1.17); Globulin 2.4 g/dL (2-4); Magnesium 2.6 mg/dL (1.9-2.7); Phosphorus 5.2 mg/dL (2.5-5.0); Potassium 4.6 mmol/L (3.5-5.0); Total Bilirubin 1.5 mg/dL (0.2-1.0); Total Protein 5.7 g/dL (6.4-8.9); eGFR CKD-EPI 10.7 (>60)
[2023-11-15 10:05] LABS: C Reactive Protein 10.93 mg/L (<8.01)
[2023-11-15] MEDS ORDERED: Senna TAB 8.6 mg TAB PO PRN (11:26)
[2023-11-15] MEDS ORDERED: Polyethylene Glycol 3350 17 GM PACKET PO PRN (11:26)
[2023-11-15] MEDS: cefTRIAXone 1 gm/50 mL D5W 1 GM/50 ML BAG IV SCH (12:50)
[2023-11-16 06:15] LABS: ABS Basophils 0.1 10^3/uL (0.0-0.1); ABS Eosinophils 0.4 10^3/uL (0.0-0.5); ABS Lymphocytes 0.8 10^3/uL (1.0-4.8); ABS Neutrophils 11.2 10^3/uL (1.5-7.6); ABS Nucleated RBC 0.01 10^3/ul; Hematocrit 28.3 % (38-53); Hemoglobin 9.7 g/dL (13.2-16.3); Mean Corpuscular Hemoglobin 32.9 pg (27-33); Mean Corpuscular Hgb Conc 34.4 g/dL (31-36); Mean Corpuscular Volume 95.7 fL (80-97); Mean Platelet Volume 9.2 fL (7.5-11.2); Nucleated Red Blood Cells % 0.1 %/100WBC (0.0-0.8); Platelet Count 99 10^3/uL (150-450); Red Blood Count 2.95 10^6/uL (4.06-5.63); Red Cell Distribution Width 14.7 % (12-17); White Blood Count 13.5 10^3/uL (3.6-10.2)
[2023-11-16 06:57] LABS: Albumin 3.1 g/dL (3.2-5.2); Albumin/Globulin Ratio 1.2 (1-3); Calcium 8.3 mg/dL (8.6-10.3); Creatinine, Serum 4.19 mg/dL (0.67-1.17); Globulin 2.5 g/dL (2-4); Magnesium 2.1 mg/dL (1.9-2.7); Phosphorus 4.9 mg/dL (2.5-5.0); Potassium 4.5 mmol/L (3.5-5.0); Total Bilirubin 1.6 mg/dL (0.2-1.0); Total Protein 5.6 g/dL (6.4-8.9)
[2023-11-16] MEDS ORDERED: Clindamycin 600 MG/D5W BAG 600 MG/50 ML BAG IV ONE (11:00)
[2023-11-16] MEDS: ceFAZolin 2 GM PREMIX 2 GM/50 ML BAG IV ONE (12:06)
[2023-11-16] MEDS: Lidocaine 1% VIAL 10 MG/ML 30 ML VIAL ONE (12:34)
[2023-11-16] MEDS: fentaNYL 100 mcg/2 ml 50 MCG/ML VIAL ONE (12:35)
[2023-11-16] MEDS: Flumazenil 0.5 mg/5 ml 0.1 MG/ML 5 ml VIAL ONE (12:35)
[2023-11-16] MEDS: Naloxone 0.4 mg VIAL 0.4 mg/ml 1 ml VIAL ONE (12:35)
[2023-11-16] MEDS: Midazolam 2 mg/2 ml VIAL 1 mg/ml 2 ml VIAL (2 mg) ONE (12:35)
[2023-11-16] MEDS: Heparin 2 UNITS/ML 1000 mls 1,000 ML IV ONE (13:16)
[2023-11-16] MEDS: fentaNYL 100 mcg/2 ml 50 MCG/ML VIAL IV SLOW PU ONE (13:17)
[2023-11-16] MEDS: Midazolam 10 mg/10 ml VIAL 1 mg/ml 10 ml VIAL (10 mg) IV SLOW PU ONE (13:17)
[2023-11-17 06:07] LABS: ALT 23 U/L (7-52); Albumin 3.1 g/dL (3.2-5.2); Albumin/Globulin Ratio 1.3 (1-3); Alkaline Phosphatase 482 U/L (35-149); Anion Gap 11 mmol/L (2-16); Blood Urea Nitrogen 66 mg/dL (6-24); CO2 Carbon Dioxide 23 mmol/L (22-32); Calcium 8.5 mg/dL (8.6-10.3); Chloride 96 mmol/L (101-111); Creatinine, Serum 5.21 mg/dL (0.67-1.17); Globulin 2.3 g/dL (2-4); Glucose 139 mg/dL (70-100); Sodium 130 mmol/L (135-145); Total Bilirubin 1.3 mg/dL (0.2-1.0); Total Protein 5.4 g/dL (6.4-8.9); eGFR CKD-EPI 10.8 (>60)
[2023-11-17 06:48] LABS: ABS Eosinophils 0.3 10^3/uL (0.0-0.5); ABS Lymphocytes 0.8 10^3/uL (1.0-4.8); ABS Neutrophils 7.9 10^3/uL (1.5-7.6); Eosinophil % 2.6 %; Hematocrit 27.7 % (38-53); Hemoglobin 9.6 g/dL (13.2-16.3); Lymphocyte % 7.6 %; Mean Corpuscular Hemoglobin 33.3 pg (27-33); Mean Corpuscular Hgb Conc 34.7 g/dL (31-36); Mean Corpuscular Volume 95.9 fL (80-97); Mean Platelet Volume 9.6 fL (7.5-11.2); Platelet Count 100 10^3/uL (150-450); Red Blood Count 2.89 10^6/uL (4.06-5.63); Red Cell Distribution Width 14.5 % (12-17)
[2023-11-17 08:03] LABS: Phosphorus 5.7 mg/dL (2.5-5.0); Potassium Redraw 4.7 mmol/L (3.5-5.0)
[2023-11-18 08:27] LABS: Hematocrit 26.5 % (38-53); Hemoglobin 9.2 g/dL (13.2-16.3); Mean Corpuscular Hemoglobin 32.9 pg (27-33); Mean Corpuscular Hgb Conc 34.6 g/dL (31-36); Mean Corpuscular Volume 95.1 fL (80-97); Mean Platelet Volume 8.9 fL (7.5-11.2); Platelet Count 72 10^3/uL (150-450); Red Blood Count 2.79 10^6/uL (4.06-5.63); Red Cell Distribution Width 14.8 % (12-17); White Blood Count 13.1 10^3/uL (3.6-10.2)
[2023-11-18 08:44] LABS: Albumin 3.3 g/dL (3.2-5.2); Albumin/Globulin Ratio 1.4 (1-3); Calcium 8.7 mg/dL (8.6-10.3); Creatinine, Serum 4.62 mg/dL (0.67-1.17); Globulin 2.3 g/dL (2-4); Potassium 4.4 mmol/L (3.5-5.0); Total Bilirubin 1.3 mg/dL (0.2-1.0); Total Protein 5.6 g/dL (6.4-8.9); eGFR CKD-EPI 12.4 (>60)
[2023-11-18 10:11] LABS: ABS Basophils 0.1 10^3/uL (0.0-0.1); ABS Eosinophils 0.2 10^3/uL (0.0-0.5); ABS Lymphocytes 1.1 10^3/uL (1.0-4.8); ABS Monocytes 1.3 10^3/uL (0.0-1.1); ABS Neutrophils 10.4 10^3/uL (1.5-7.6); Eosinophil % 1.3 %; Lymphocyte % 8.5 %
[2023-11-18 23:09] LABS: Urine Appearance Turbid; Urine Bilirubin Negative (Negative); Urine Blood Trace (Negative); Urine Color Yellow; Urine Glucose Negative (Negative); Urine Ketones Negative (Negative); Urine Nitrite Negative (Negative); Urine Protein 2+ (>=100 mg/dL) (Negative); Urine Specific Gravity 1.018 (1.002-1.030); Urine Urobilinogen Negative (Negative)
[2023-11-18 23:30] LABS: Urine Bacteria Absent /HPF (Absent); Urine Red Blood Cell 1+(3-5/hpf) /HPF (0-Trace); Urine Sperm Present /HPF (Absent); Urine Squamous Epithelial Cell Present /HPF (Absent); Urine White Blood Cell 1+(6-10/hpf) /HPF (0-Trace)
[2023-11-19 06:54] LABS: Albumin 3.2 g/dL (3.2-5.2); Albumin/Globulin Ratio 1.3 (1-3); Calcium 8.6 mg/dL (8.6-10.3); Creatinine, Serum 5.4 mg/dL (0.67-1.17); Globulin 2.4 g/dL (2-4); Magnesium 1.9 mg/dL (1.9-2.7); Phosphorus 5.3 mg/dL (2.5-5.0); Potassium 4.6 mmol/L (3.5-5.0); Total Bilirubin 1.1 mg/dL (0.2-1.0); Total Protein 5.6 g/dL (6.4-8.9); eGFR CKD-EPI 10.3 (>60)
[2023-11-19 07:15] LABS: ABS Basophils 0.1 10^3/uL (0.0-0.1); ABS Eosinophils 0.2 10^3/uL (0.0-0.5); ABS Lymphocytes 0.8 10^3/uL (1.0-4.8); ABS Monocytes 1.3 10^3/uL (0.0-1.1); ABS Neutrophils 8.3 10^3/uL (1.5-7.6); ABS Nucleated RBC 0.01 10^3/ul; Hematocrit 26.2 % (38-53); Lymphocyte % 7.8 %; Mean Corpuscular Hemoglobin 33.3 pg (27-33); Mean Corpuscular Hgb Conc 34.4 g/dL (31-36); Mean Corpuscular Volume 96.6 fL (80-97); Mean Platelet Volume 9.5 fL (7.5-11.2); Nucleated Red Blood Cells % 0.1 %/100WBC (0.0-0.8); Platelet Count 80 10^3/uL (150-450); Red Blood Count 2.71 10^6/uL (4.06-5.63); Red Cell Distribution Width 15.2 % (12-17); White Blood Count 10.6 10^3/uL (3.6-10.2)
[2023-11-19 10:12] LABS: INR 1.07 (0.83-1.13)
[2023-11-19 14:31] LABS: Body Fluid Appearance Cloudy; Body Fluid Color Yellow; Body Fluid Source Peritonial Fluid
[2023-11-19] MEDS: Albumin Human 25% 25 GM/100 ML BTL IV ONE ×3 (14:39→15:10)
[2023-11-19 14:41] LABS: Body Fluid Total Nucleated 95 /mcL
[2023-11-19 16:14] LABS: Body Fluid Mono 49 %; Body Fluid Other Cells 19; Body Fluid Total Cells Counted 200
[2023-11-19] MEDS: Phenylephrine 40 mcg/mL 10mL (400mcg) SYRINGE ONE (16:47)
[2023-11-20] MEDS: Phenylephrine 40 mcg/mL 10mL (400mcg) SYRINGE IV PUSH ONE (04:14)
[2023-11-20 05:06] LABS: Hemoglobin 8.3 g/dL (13.2-16.3); Mean Corpuscular Hemoglobin 33.1 pg (27-33); Mean Corpuscular Hgb Conc 34.5 g/dL (31-36); Mean Corpuscular Volume 95.8 fL (80-97); Red Cell Distribution Width 15.3 % (12-17); White Blood Count 7.9 10^3/uL (3.6-10.2)
[2023-11-20 06:00] LABS: Albumin 3.7 g/dL (3.2-5.2); Albumin/Globulin Ratio 1.5 (1-3); Calcium 8.5 mg/dL (8.6-10.3); Creatinine, Serum 4.41 mg/dL (0.67-1.17); Globulin 2.4 g/dL (2-4); Magnesium 1.8 mg/dL (1.9-2.7); Phosphorus 4.6 mg/dL (2.5-5.0); Total Bilirubin 1.1 mg/dL (0.2-1.0); Total Protein 6.1 g/dL (6.4-8.9); eGFR CKD-EPI 13.1 (>60)
[2023-11-20 06:35] LABS: ABS Basophils 0.1 10^3/uL (0.0-0.1); ABS Eosinophils 0.1 10^3/uL (0.0-0.5); ABS Lymphocytes 0.9 10^3/uL (1.0-4.8); ABS Monocytes 1.2 10^3/uL (0.0-1.1); ABS Neutrophils 5.5 10^3/uL (1.5-7.6); ABS Nucleated RBC 0.01 10^3/ul; Eosinophil % 1.3 %; Lymphocyte % 11.5 %; Mean Platelet Volume 8.9 fL (7.5-11.2); Nucleated Red Blood Cells % 0.1 %/100WBC (0.0-0.8); Platelet Count 33 10^3/uL (150-450)
[2023-11-20] MEDS: Magnesium Sulfate 2 gm BAG 2 GM/50 ML BAG IVPB ONE (09:02)
[2023-11-20 15:22] LABS: Lactate Dehydrogenase, BF 54 U/L
[2023-11-20 16:29] LABS: Hemoglobin 8.6 g/dL (13.2-16.3); Mean Corpuscular Hgb Conc 34.6 g/dL (31-36); Mean Corpuscular Volume 95.6 fL (80-97); Mean Platelet Volume 9.5 fL (7.5-11.2); Platelet Count 42 10^3/uL (150-450); Red Blood Count 2.61 10^6/uL (4.06-5.63); Red Cell Distribution Width 15.4 % (12-17); White Blood Count 8.2 10^3/uL (3.6-10.2)
[2023-11-21 06:05] LABS: ABS Basophils 0.1 10^3/uL (0.0-0.1); ABS Eosinophils 0.2 10^3/uL (0.0-0.5); ABS Lymphocytes 0.8 10^3/uL (1.0-4.8); ABS Monocytes 0.9 10^3/uL (0.0-1.1); ABS Neutrophils 5.8 10^3/uL (1.5-7.6); Eosinophil % 2.2 %; Hematocrit 24.7 % (38-53); Hemoglobin 8.6 g/dL (13.2-16.3); Lymphocyte % 10.2 %; Mean Corpuscular Hemoglobin 33.5 pg (27-33); Mean Corpuscular Hgb Conc 34.9 g/dL (31-36); Mean Corpuscular Volume 95.9 fL (80-97); Mean Platelet Volume 9.1 fL (7.5-11.2); Platelet Count 44 10^3/uL (150-450); Red Blood Count 2.58 10^6/uL (4.06-5.63); White Blood Count 7.8 10^3/uL (3.6-10.2)
[2023-11-21 06:45] LABS: Albumin 3.6 g/dL (3.2-5.2); Albumin/Globulin Ratio 1.6 (1-3); Calcium 8.9 mg/dL (8.6-10.3); Creatinine, Serum 5.76 mg/dL (0.67-1.17); Globulin 2.3 g/dL (2-4); Magnesium 2.5 mg/dL (1.9-2.7); Phosphorus 4.8 mg/dL (2.5-5.0); Potassium 4.7 mmol/L (3.5-5.0); Total Protein 5.9 g/dL (6.4-8.9); eGFR CKD-EPI 9.5 (>60)
[2023-11-21 10:19] LABS: Albumin, BF 1.1 g/dL; Fluid Type, Albumin PERITONEAL FLUID; Fluid Type, Protein, Total PERITONEAL FLUID; Glucose, BF 132 mg/dL; Total Protein, BF 1.7 g/dL
[2023-11-21 10:51] VITALS: BP 114/63
== END 2023-11-21 13:00 | disposition home or self-care (01) | DRG 871 ==
LOC: ED 10:49 → EDHOLD 10:49 → SUATTDRO 17:56 → SSU 19:43 → SUATTDRO 11-05 13:03
PROVIDERS: ADMIT Internal Medicine; ATTEND Internal Medicine

== ENCOUNTER 2023-12-06 16:52 | Inpatient (IN) ==
[2023-12-06 17:44] LABS: Venous Bicarbonate HCO3 21.8 mmol/L (24-28)
[2023-12-06 17:45] LABS: ABS Basophils 0.1 10^3/uL (0.0-0.1); ABS Lymphocytes 0.4 10^3/uL (1.0-4.8); ABS Monocytes 1.5 10^3/uL (0.0-1.1); ABS Nucleated RBC 0.02 10^3/ul; Hematocrit 30.2 % (38-53); Hemoglobin 10.1 g/dL (13.2-16.3); Mean Corpuscular Hemoglobin 33.7 pg (27-33); Mean Corpuscular Hgb Conc 33.5 g/dL (31-36); Mean Corpuscular Volume 100.7 fL (80-97); Mean Platelet Volume 8.9 fL (7.5-11.2); Nucleated Red Blood Cells % 0.1 %/100WBC (0.0-0.8); Platelet Count 231 10^3/uL (150-450); Red Blood Count 2.99 10^6/uL (4.06-5.63); Red Cell Distribution Width 16.8 % (12-17); White Blood Count 12.9 10^3/uL (3.6-10.2)
[2023-12-06 17:50] LABS: INR 1.42 (0.83-1.13)
[2023-12-06 18:14] LABS: Albumin 2.9 g/dL (3.2-5.2); Albumin/Globulin Ratio 0.8 (1-3); C Reactive Protein 76.08 mg/L (<8.01); Calcium 8.5 mg/dL (8.6-10.3); Creatinine, Serum 5.9 mg/dL (0.67-1.17); Globulin 3.6 g/dL (2-4); Magnesium 2.2 mg/dL (1.9-2.7); Potassium 4.7 mmol/L (3.5-5.0); Total Bilirubin 2.2 mg/dL (0.2-1.0); Total Protein 6.5 g/dL (6.4-8.9); eGFR CKD-EPI 9.3 (>60)
[2023-12-06] MEDS: Cefepime 1 GM in Dextrose 1 GM/50 ML BAG IV ONE (18:19)
[2023-12-07] MEDS ORDERED: Dextrose 50% Syringe 50 ml 25 GM/50 ML SYRINGE IV PUSH PRN ×2 (00:10→07:30)
[2023-12-07 00:50] LABS: Body Fluid Total Nucleated 535 /mcL
[2023-12-07] MEDS: metroNIDAZOLE IV 500 MG/100ML 500 MG/100 ML BAG IVPB SCH ×2 (00:54→21:01)
[2023-12-07 01:03] LABS: Body Fluid Mono 16 %; Body Fluid Other Cells 10; Body Fluid Total Cells Counted 200
[2023-12-07 01:04] LABS: Body Fluid Appearance Clear; Body Fluid Color Yellow; Body Fluid Source Peritonial Fluid
[2023-12-07] MEDS: Insulin GLARGINE 100 un/ml 10 ml VIAL SUBCUT ONE (01:08)
[2023-12-07] MEDS: Heparin 5000 UNITS/ML 1 mL VIAL SUBCUT SCH (05:05)
[2023-12-07 05:34] LABS: ABS Basophils 0.1 10^3/uL (0.0-0.1); ABS Lymphocytes 0.5 10^3/uL (1.0-4.8); ABS Monocytes 1.3 10^3/uL (0.0-1.1); ABS Neutrophils 10.1 10^3/uL (1.5-7.6); ABS Nucleated RBC 0.01 10^3/ul; Hematocrit 28.9 % (38-53); Hemoglobin 9.8 g/dL (13.2-16.3); Lymphocyte % 3.9 %; Mean Corpuscular Hemoglobin 33.5 pg (27-33); Mean Corpuscular Hgb Conc 33.8 g/dL (31-36); Mean Corpuscular Volume 99.2 fL (80-97); Mean Platelet Volume 8.8 fL (7.5-11.2); Nucleated Red Blood Cells % 0.1 %/100WBC (0.0-0.8); Platelet Count 165 10^3/uL (150-450); Red Blood Count 2.91 10^6/uL (4.06-5.63); Red Cell Distribution Width 16.2 % (12-17); White Blood Count 11.9 10^3/uL (3.6-10.2)
[2023-12-07 06:10] LABS: ALT 10 U/L (7-52); AST 25 U/L (13-39); Albumin 2.6 g/dL (3.2-5.2); Albumin/Globulin Ratio 0.8 (1-3); Alkaline Phosphatase 251 U/L (35-149); Anion Gap 14 mmol/L (2-16); Blood Urea Nitrogen 109 mg/dL (6-24); CO2 Carbon Dioxide 27 mmol/L (22-32); Calcium 8.1 mg/dL (8.6-10.3); Chloride 91 mmol/L (101-111); Creatinine, Serum 6.07 mg/dL (0.67-1.17); Globulin 3.4 g/dL (2-4); Glucose 278 mg/dL (70-100); Magnesium 2.2 mg/dL (1.9-2.7); Phosphorus 3.8 mg/dL (2.5-5.0); Potassium 5.1 mmol/L (3.5-5.0); Sodium 132 mmol/L (135-145); Total Bilirubin 2.2 mg/dL (0.2-1.0)
[2023-12-07] MEDS ORDERED: NS 0.9% 1000 ml BAG 100 ML IV PRN (07:59)
[2023-12-07] MEDS ORDERED: Heparin 1,000 UNIT/ML 10 ml (10,000 UNITS) CATHLAB/DIALYSIS DIALYSIS PRN (07:59)
[2023-12-07] MEDS ORDERED: NS 0.9% 1000 ml BAG 200 ML IV PRN (07:59)
[2023-12-07 09:21] LABS: % Iron Saturation 61 % (15-55); .Transferrin < 75 mg/dL (203-362); Iron 64 ug/dL (50-212); Total Iron Binding Capacity 105 mcg/dL (250-450); Unsaturated Iron Binding 41 ug/dL
[2023-12-07 09:47] LABS: Folate > 20.00 ng/mL (5.90-24.80)
[2023-12-07 09:48] LABS: Vitamin B12 > 1450 pg/mL (180-914)
[2023-12-07] MEDS: cefTRIAXone 1 gm/50 mL D5W 1 GM/50 ML BAG IV SCH (10:20)
[2023-12-07] MEDS: Albumin Human 25% 25 GM/100 ML BTL IV PRN (14:32)
[2023-12-07] MEDS: Albumin Human 25% 25 GM/100 ML BTL IV ONE ×2 (14:57→18:07)
[2023-12-07] MEDS: Insulin GLARGINE 100 un/ml 10 ml VIAL SUBCUT SCH (20:59)
[2023-12-08 05:29] LABS: ABS Lymphocytes 0.3 10^3/uL (1.0-4.8); ABS Monocytes 1.1 10^3/uL (0.0-1.1); ABS Neutrophils 8.7 10^3/uL (1.5-7.6); ABS Nucleated RBC 0.01 10^3/ul; Eosinophil % 0.1 %; Hematocrit 25.6 % (38-53); Hemoglobin 8.9 g/dL (13.2-16.3); Lymphocyte % 3.3 %; Mean Corpuscular Hemoglobin 34.4 pg (27-33); Mean Corpuscular Hgb Conc 34.5 g/dL (31-36); Mean Corpuscular Volume 99.5 fL (80-97); Mean Platelet Volume 8.4 fL (7.5-11.2); Nucleated Red Blood Cells % 0.1 %/100WBC (0.0-0.8); Platelet Count 158 10^3/uL (150-450); Red Blood Count 2.58 10^6/uL (4.06-5.63); Red Cell Distribution Width 16.6 % (12-17); White Blood Count 10.1 10^3/uL (3.6-10.2)
[2023-12-08 05:39] LABS: INR 1.45 (0.83-1.13)
[2023-12-08 05:46] LABS: Albumin 3.3 g/dL (3.2-5.2); Albumin/Globulin Ratio 1.1 (1-3); Calcium 8.6 mg/dL (8.6-10.3); Creatinine, Serum 6.75 mg/dL (0.67-1.17); Globulin 2.9 g/dL (2-4); Magnesium 2.2 mg/dL (1.9-2.7); Phosphorus 4.7 mg/dL (2.5-5.0); Potassium 4.7 mmol/L (3.5-5.0); Total Bilirubin 1.9 mg/dL (0.2-1.0); Total Protein 6.2 g/dL (6.4-8.9); eGFR CKD-EPI 7.9 (>60)
[2023-12-08] MEDS ORDERED: cefTRIAXone 1 gm/50 mL D5W 1 GM/50 ML BAG IV SCH (09:00)
[2023-12-08] MEDS: cefTRIAXone 2 gm/50 mL D5W 2 GM/50 ML BAG IV SCH (09:42)
[2023-12-08 10:01] VITALS: BP 133/70
[2023-12-08] MEDS ORDERED: Ondansetron ODT 4 mg TAB 4 MG TAB SL PRN (13:21)
[2023-12-09 03:01] LABS: Hepatitis B Surface Antigen Nonreactive (Nonreactive)
[2023-12-09 03:19] LABS: Hepatitis B Surface Ab Not Immune (Immune)
[2023-12-13 17:09] LABS: Rapid COVID-19 Molecular Undetected (Undetected)
[2023-12-14] MEDS: Morphine ORAL CONCENTRATE 5 MG/0.25 ML ORAL.SYRIN SL PRN (10:02)
== END 2023-12-14 11:10 | disposition hospice, home (50) | DRG 871 ==
LOC: EDHOLD 16:52 → ED 16:52 → SUATTDRO 23:58 → MED 12-07 07:59 → SUATTDRO 12-07 08:48 → MED 12-07 17:44
PROVIDERS: ADMIT Hospitalist; ATTEND Hospitalist